=== PATIENT | male | born 1985 ===

== ENCOUNTER → 2018-07-14 | Outpatient (CLI) | payer OTHER ==
[~2018-07-14] MED LIST: IOHEXOL 180 MG/ML 10 ML VIAL. ONE; LIDOCAINE 1% PF 2 ML VIAL. ONE; NAPR-514 PO; methylPREDNISolone ACETATE 40 MG/ML VIAL. ONE; methylPREDNISolone ACETATE 80 MG/ML VIAL. ONE
--- NOTE | 2018-07-15 01:03 | PAIN ---
DATE OF SERVICE: 07/14/2018 INITIAL CONSULTATION FOR PAIN CLINIC CHIEF COMPLAINT: Low back and right lower extremity pain. HISTORY OF PRESENT ILLNESS: This is a 33-year-old male who presents with history of pain, low back, right lower extremity for about 7 months. The patient reports no specific injury or action he is aware of. The pain has begun to increase with each day and over the past several months has become worse, radiating to the right lower extremity, mostly in the posterior-lateral hip and lateral anterior thigh, anterior medial thigh, medial knee, anterior lower leg and somewhat on the lateral lower leg as well on the right side only. The patient reports it is shooting, tingling with numbness and radiating pain in the leg, aching, cramping and dull, alternating with sharp across the back as well, but mostly in the hip and leg. The patient reports again no specific injury or action he is aware of. The patient has had some physical therapy with some traction on the low back as well as massage and stretching and strengthening exercises, which helped to some extent initially, but has not been keeping the pain away. The patient has been doing stretches and strengthening exercises on his own, also taking naproxen and ibuprofen which does help. He tried meloxicam, but it was not helpful. The patient reports the pain does not awaken him from sleep at night; worse with standing, walking, changing positions and sitting for long periods; does affect his ability to walk but he has no loss of function. He has some significant fatigability of the right lower extremity with ambulation, but without loss of function. The patient reports no left-sided symptoms. The patient did have MRI scan of the lumbar spine showing large broad-based disk extrusion at L4-L5 causing moderate mass effect on the thecal sac as well as the right L5 nerve root and [id number] central canal stenosis as a result with moderate central canal stenosis seen at L2-L3 and mild bilateral foraminal narrowing at L5-S1 with small disk bulge. The patient rates his disability from 0-10, 10 being the worst, as 8 with family and home responsibilities and sexual behavior, 10 with recreation, 6 with social activity, 5 with occupation, 3 with self-care and 0 with life support activities. PAST MEDICAL HISTORY: Significant for previous cholecystectomy and right ankle reconstruction after injury, cigarette smoking about 4 cigarettes a day for the past 9 years. Otherwise, the patient has been in relatively good health. CURRENT MEDICATIONS: Include just naproxen 500 mg twice a day. FAMILY HISTORY: Significant for no major medical problems or conditions he is aware of. SOCIAL HISTORY: The patient does drink alcohol about 2 beers once a month on an average, smokes about 4 cigarettes a day and has for 9 years. Does not use any illegal, illicit or recreational drugs. He is , lives with his spouse, has 2 children living at home, lives locally in [place], [place] and works at a local [employer] ____. REVIEW OF SYSTEMS: The patient's review of systems is positive for those items mentioned in history of present illness. All systems reviewed and otherwise negative. It is complete, full and well documented on the patient's chart. PHYSICAL EXAMINATION: VITAL SIGNS: Blood pressure is 129/94, pulse 91, respirations 18, temperature 98.3 degrees Fahrenheit, height is 5 feet 11 inches and weight is 293 pounds. GENERAL: The patient is awake, alert, oriented, appropriate, very pleasant demeanor. HEENT: Head shows normocephalic, atraumatic. Extraocular movements are intact and symmetrical. Oral cavity: Mucous membranes moist and pink. Dentition is intact. NECK: Shows anterior throat supple without palpable lymphadenopathy noted. Swallow reflex symmetrical. CHEST: Shows normal on inspection. Breath sounds clear to auscultation bilaterally. HEART: Shows S1, S2 clear. No murmurs auscultated. ABDOMEN: Soft, nontender, nondistended. No palpable organomegaly is noted. No rebound or guarding demonstrated. BACK: Shows spine grossly in the midline. Normal-appearing thoracic kyphosis and lumbar lordotic curvature. Lumbar paraspinous muscle shows symmetrical on inspection; on palpation, it shows some mild tenderness but only diffusely in the low lumbar distribution of paraspinous muscles, but again no asymmetry, no trigger points, no tenderness with palpation over the spinous processes, sacrum or sacroiliac regions. The patient has good rotational motion of lumbar spine both laterally right and left as well as extension and flexion without difficulty or pain reported. EXTREMITIES: Lower extremities show deep tendon reflexes at 2+ in the patellar, 1+ tendo calcaneus tendons. Motor exam is approximately 4 on a scale of 5 with right dorsiflexion, extension and quads and hamstring flexion 5/5 bilaterally. Peripheral pulses are 1+ posterior tibia. No peripheral edema is noted bilaterally. The patient's lower extremities are warm and dry to touch, equal in color and appearance. Straight leg raise noted to be positive on the right at about 40 degrees, decreased with knee flexion, left side is negative. Gaenslen's and Jose F's maneuvers are negative bilaterally. The patient is able to stand, stand on her toes without difficulty or loss of balance, walks with a normal-appearing gait, does not appear to favor the right or left lower extremities. SKIN: Warm and dry, good turgor. No edema. No sores, rashes, or bruises. IMPRESSION: 1. This is a 33-year-old male with approximately 7-month history of pain, increasing low back into the right lower extremity in radicular fashion. 2. MRI scan of lumbar spine as noted. 3. Cigarette smoking. 4. Arthritis. PLAN: Options were discussed with the patient including conservative medical management, physical therapy, interventional technique. He would like to pursue interventional techniques. We discussed a lumbar epidural steroid injection using description as well as anatomical models to describe the procedure. Risks were then discussed including, but not limited to bleeding, infection, possibility of epidural hematoma and subsequent neurologic compromise, dural puncture, headaches, spinal cord and/or nerve damage, side effects of steroid medication and poor results regarding pain control. The patient understands and wished to proceed. The patient will return to clinic in approximately 2 weeks for followup, was counseled as to return appointment, activity level and side effects to be aware of. DIAGNOSES: 1. Lumbar radiculopathy with lumbar degenerative disk disease. 2. Lumbar herniated disk. PROCEDURE: Lumbar epidural steroid injection, translaminar approach L4-L5 level using C-arm fluoroscopic guidance under sterile prep and drape using local anesthetic. MEDICATION INJECTED: A total of 120 mg Depo-Medrol plus 10 mL of preservative-free normal saline and 2 mL of Isovue for contrast. CONDITION AT DISCHARGE: Stable. The patient tolerated the procedure well, had no complications. MARIANELA KENNEDY MD DR: CYNDEE/dacia JOB#: [id number] / [id number]
== END | disposition home or self-care (01) ==
LOC: PNCL 12:56
PROVIDERS: ATTEND Anesthesiology
DX: M51.16 Intervertebral disc disorders with radiculopathy, lumbar region (principal); M19.90 Unspecified osteoarthritis, unspecified site; F17.210 Nicotine dependence, cigarettes, uncomplicated; Z90.49 Acquired absence of other specified parts of digestive tract; Z98.890 Other specified postprocedural states; Z79.899 Other long term (current) drug therapy; Z72.89 Other problems related to lifestyle
CPT/HCPCS: 62323; J1030; J1040; Q9965